=== PATIENT | female | born 1980 ===

== ENCOUNTER → 2017-06-03 | Outpatient (CLI) | payer BC | END | disposition home or self-care (01) | LOC: C.PAPS 11:34 | PROVIDERS: ATTEND Obstetrics & Gynecology | DX: Z01.419 Encounter for gynecological examination (general) (routine) without abnormal findings (principal) ==

== ENCOUNTER → 2017-07-30 | Outpatient (CLI) | payer BC ==
--- NOTE | 2017-07-30 12:57 | DIAGNOSTIC IMAGING REPORT ---
SINUSES MIN 3 VIEWS ROUTINE CLINICAL HISTORY: R05 Chronic [id number] COMPARISON STUDY: No previous studies for comparison. FINDINGS: No air-fluid levels are visualized. There is no conventional radiographic evidence of significant mucoperiosteal thickening. IMPRESSION: No evidence of sinusitis. Electronically signed by: Claudy Cleveland M.D. 07/30/2017 12:55 PM Dictated Date/Time: 07/30/2017 12:55 PM
--- NOTE | 2017-07-30 12:58 | DIAGNOSTIC IMAGING REPORT ---
CHEST 2 VIEWS ROUTINE CLINICAL HISTORY: R05 Chronic [id number] COMPARISON STUDY: No previous studies for comparison. FINDINGS: The cardiac and mediastinal contours are normal. There is no evidence of focal pulmonary consolidation. There is no evidence of failure. No pleural effusions are visualized.[ IMPRESSION: No active disease in the chest. Electronically signed by: Claudy Cleveland M.D. 07/30/2017 12:57 PM Dictated Date/Time: 07/30/2017 12:57 PM
== END | disposition home or self-care (01) ==
LOC: C.RAD1850 12:27
PROVIDERS: ATTEND Internal Medicine Pulmonary Disease
DX: R05 Cough (principal)

== ENCOUNTER → 2017-08-20 | Outpatient (CLI) | payer BC ==
--- NOTE | 2017-08-25 17:39 | PULMONARY FUNCTION TEST ---
PROCEDURE: Spirometry. DESCRIPTION OF PROCEDURE: Pre-bronchodilator spirometry is well within normal limits. There was no significant response to bronchodilator, but this should not preclude a therapeutic trial if clinically warranted. Lung volumes suggest the presence of significant air trapping. Diffusion capacity was well within normal limits. Clinical correlation is needed.
== END | disposition home or self-care (01) ==
LOC: C.RC 12:45
PROVIDERS: ATTEND Internal Medicine Pulmonary Disease
DX: R05 Cough (principal)